=== PATIENT | female | born 1965 | race Caucasian/White ===

== ENCOUNTER 2022-03-31 05:04 | Emergency (ER) | payer OTHER ==
[~2022-03-31] VITALS: Ht 172.7 cm; Wt 99.8 kg
[2022-03-31] MEDS ORDERED: ACETAMINOPHEN500 M5 PEG (05:48)
[2022-03-31] MEDS ORDERED: ARGINAID POWDE1 EACH PO (05:49)
[2022-03-31] MEDS ORDERED: Ventolin 02.5 MG/3 M INH (05:49)
[2022-03-31] MEDS ORDERED: BACLOFEN5 MG PEG (05:50)
[2022-03-31] MEDS ORDERED: DULCOLAX10 M1 R (05:52)
[2022-03-31] MEDS ORDERED: PARLODEL2.5 M1 PO (05:52)
[2022-03-31] MEDS ORDERED: PERIDEX118 ML MM (05:53)
[2022-03-31] MEDS ORDERED: SENSIPAR60 MG PO (05:54)
[2022-03-31] MEDS ORDERED: ENOXAPARIN40 MG/0.2 SQ (05:57)
[2022-03-31] MEDS ORDERED: LANTUS SOL100 UNIT/1 SC (05:59)
[2022-03-31] MEDS ORDERED: HUMULIN R100 UNIT/1 SQ (05:59)
[2022-03-31] MEDS ORDERED: MELATONIN3 MG PEG (06:00)
[2022-03-31] MEDS ORDERED: MILK OF MA400 MG/51 PEG (06:01)
[2022-03-31] MEDS ORDERED: PROVIGIL100 MG PEG (06:03)
[2022-03-31] MEDS ORDERED: MIRALAX119 GM PEG (06:03)
[2022-03-31 06:04] LABS: BASO % 0.6 % (0.0-1.0); EOS # 0.2 10*3/uL (0.0-0.4); EOS % 2.8 % (1.0-4.0); HEMATOCRIT 32.7 % (37.0-47.0); LYMPH # 1.3 10*3/uL (1.3-4.4); LYMPH % 19.5 % (27.0-41.0); MEAN CORPUSCULAR HGB 25.4 pg (27.0-31.0); MEAN CORPUSCULAR HGB CONC 30.6 g/dl (33.0-37.0); MONO # 0.4 10*3/uL (0.1-1.0); MONO % 6.5 % (3.0-9.0); NEUT # 4.5 10*3/uL (2.3-7.9); NEUT % 69.2 % (47.0-73.0); PLATELET COUNT AUTOMATED 389 10*3/uL (130-400); RED BLOOD COUNT 3.94 10*6/uL (4.10-5.10); RED CELL DISTRI WIDTH 18.5 % (0-14.5); WHITE BLOOD COUNT 6.5 10*3/uL (4.8-10.8)
[2022-03-31] MEDS ORDERED: OXYCODONE5 M1 PEG (06:04)
[2022-03-31] MEDS ORDERED: SENNA LAX8.6 M1 PEG (06:05)
[2022-03-31] MEDS ORDERED: PROTONIX20 MG PEG (06:05)
[2022-03-31] MEDS ORDERED: MULTIVITAMINS1 EAC6 PEG (06:06)
[2022-03-31] MEDS ORDERED: VISTARIL25 MG PEG (06:07)
[2022-03-31] MEDS ORDERED: VITAMIN C500 M9 PEG (06:07)
[2022-03-31] MEDS ORDERED: ZINC50 M5 PEG (06:08)
[2022-03-31] MEDS ORDERED: ONDANSETRON HYDR4 MG PEG (06:09)
[2022-03-31 06:18] LABS: ALKALINE PHOSPHATASE 112 U/L (45-117); BUN 54 mg/dl (7-24); CHLORIDE 99 mmol/L (98-107); CREATININE 0.71 mg/dL (0.55-1.02); POTASSIUM 4.1 mmol/L (3.5-5.1); SGOT/AST 35 IU/L (3-35); SGPT/ALT 44 U/L (12-78); SODIUM 138 mmol/L (136-145); TOTAL PROTEIN 8.1 gm/dL (6.4-8.2)
[2022-03-31 06:22] LABS: ACT PARTIAL THROMBO TIME 31.9 SECONDS (20.0-32.1)
[2022-03-31 08:28] LABS: BILIRUBIN Negative (Negative); BLOOD 2+ (Negative); CLARITY Turbid (Clear); COLOR Yellow (Yellow); GLUCOSE Negative (Negative); KETONE Negative (Negative); LEUKO ESTERASE 3+ (Negative); NITRITE Negative (Negative); SPECIFIC GRAVITY 1.015 (1.001-1.030); UROBILINOGEN 0.2 E.U./dl (0.0-1.0)
[2022-03-31 08:33] LABS: PH 8.5 (4.5-8.0)
[2022-03-31 08:53] LABS: BACTERIA 4+; RBC 21-30 rbc/hpf (0-2); TRIP PHOS CRYSTALS 1+; WBC TNTC wbc/hpf (0-5)
== END 2022-03-31 16:38 | disposition short-term general hospital (02) ==
LOC: ED 05:04
PROVIDERS: Emergency Medicine
DX: S31.000A Unspecified open wound of lower back and pelvis without penetration into retroperitoneum, initial encounter (principal); A41.9 Sepsis, unspecified organism; M72.6 Necrotizing fasciitis; E11.9 Type 2 diabetes mellitus without complications; E66.9 Obesity, unspecified; I50.9 Heart failure, unspecified; Z91.041 Radiographic dye allergy status; Z79.899 Other long term (current) drug therapy; Z98.890 Other specified postprocedural states; X58.XXXA Exposure to other specified factors, initial encounter; Y93.89 Activity, other specified; Y92.89 Other specified places as the place of occurrence of the external cause; Y99.8 Other external cause status

== ENCOUNTER 2022-04-28 04:23 | Emergency (ER) | payer OTHER ==
[~2022-04-28] VITALS: Ht 175.2 cm; Wt 113.4 kg
[~2022-04-28 04:23] MED LIST: ACETAMINOPHEN500 M5 PEG; ARGINAID POWDE1 EACH PO; BACLOFEN5 MG PEG; DULCOLAX10 M1 R; ENOXAPARIN40 MG/0.2 SQ; HUMULIN R100 UNIT/1 SQ; LANTUS SOL100 UNIT/1 SC; MELATONIN3 MG PEG; MILK OF MA400 MG/51 PEG; MIRALAX119 GM PEG; MULTIVITAMINS1 EAC6 PEG; ONDANSETRON HYDR4 MG PEG; OXYCODONE5 M1 PEG; PARLODEL2.5 M1 PO; PERIDEX118 ML MM; PROTONIX20 MG PEG; PROVIGIL100 MG PEG; SENNA LAX8.6 M1 PEG; SENSIPAR60 MG PO; VISTARIL25 MG PEG; VITAMIN C500 M9 PEG; Ventolin 02.5 MG/3 M INH; ZINC50 M5 PEG
[2022-04-28 04:39] LABS: BASO % 0.3 % (0.0-1.0); EOS # 0.1 10*3/uL (0.0-0.4); EOS % 1.4 % (1.0-4.0); HEMATOCRIT 32.6 % (37.0-47.0); LYMPH % 9.5 % (27.0-41.0); MEAN CELL VOLUME 83.2 fl (81.0-99.0); MEAN CORPUSCULAR HGB 25.3 pg (27.0-31.0); MEAN CORPUSCULAR HGB CONC 30.4 g/dl (33.0-37.0); MEAN PLATELET VOLUME 9.2 fl (9.6-12.3); MONO # 0.6 10*3/uL (0.1-1.0); MONO % 6.2 % (3.0-9.0); NEUT # 8.4 10*3/uL (2.3-7.9); NEUT % 82.2 % (47.0-73.0); PLATELET COUNT AUTOMATED 286 10*3/uL (130-400); RED BLOOD COUNT 3.92 10*6/uL (4.10-5.10); RED CELL DISTRI WIDTH 19.6 % (0-14.5); WHITE BLOOD COUNT 10.3 10*3/uL (4.8-10.8)
[2022-04-28 04:50] LABS: ACT PARTIAL THROMBO TIME 29.2 SECONDS (20.0-32.1)
[2022-04-28 04:54] LABS: ALKALINE PHOSPHATASE 130 U/L (45-117); BUN 76 mg/dl (7-24); CHLORIDE 98 mmol/L (98-107); CREATININE 0.89 mg/dL (0.55-1.02); SGOT/AST 18 IU/L (3-35); SGPT/ALT 28 U/L (12-78); SODIUM 138 mmol/L (136-145)
[2022-04-28 06:25] LABS: BILIRUBIN Negative (Negative); BLOOD 3+ (Negative); CLARITY Turbid (Clear); COLOR Dark Yellow (Yellow); GLUCOSE Negative (Negative); KETONE Negative (Negative); NITRITE Positive (Negative); SPECIFIC GRAVITY 1.015 (1.001-1.030)
[2022-04-28 06:35] LABS: LEUKO ESTERASE 3+ (Negative)
[2022-04-28] MEDS ORDERED: CEPHALEXIN500 M1 PO (06:46)
[2022-04-28 06:53] LABS: BACTERIA 4+; RBC 41-50 rbc/hpf (0-2); TRIP PHOS CRYSTALS TRACE; WBC TNTC wbc/hpf (0-5)
== END 2022-04-28 07:00 | disposition home or self-care (01) ==
LOC: ED 04:23
PROVIDERS: Family Medicine
DX: N39.0 Urinary tract infection, site not specified (principal); R31.9 Hematuria, unspecified; Z91.041 Radiographic dye allergy status; Z79.899 Other long term (current) drug therapy

== ENCOUNTER 2022-08-18 19:22 | Emergency (ER) | payer OTHER ==
[~2022-08-18] VITALS: Wt 94.3 kg
[~2022-08-18 19:22] MED LIST changes: +CEPHALEXIN500 M1 PO; +CRESTOR5 M1 PEG; +OXYCODONE HCL5 MG PEG; +PARLODEL2.5 M1 PEG; -PARLODEL2.5 M1 PO; +SENSIPAR30 MG PEG; +ZOSYN 3.373.375 GM/1 IV
== END 2022-08-18 23:17 ==
LOC: ED 19:22
DX: T18.3XXA Foreign body in small intestine, initial encounter (principal); Z91.041 Radiographic dye allergy status; Z98.890 Other specified postprocedural states; Z93.1 Gastrostomy status; Z87.891 Personal history of nicotine dependence; X58.XXXA Exposure to other specified factors, initial encounter; Y93.89 Activity, other specified; Y92.89 Other specified places as the place of occurrence of the external cause; Y99.8 Other external cause status